=== PATIENT | female | born 1965 | race African-American/Black ===

== ENCOUNTER 2019-10-08 09:55 | Emergency (ER) | payer OTHER ==
[~2019-10-08] VITALS: Ht 170.2 cm; Wt 81.0 kg
[2019-10-08 10:50] VITALS: BP 112/58
[2019-10-08] MEDS ORDERED: SODIUM CHLORIDE 0.9% 1,000 ML IV ONE (10:57)
== END 2019-10-08 11:15 | disposition left against medical advice (07) ==
LOC: ER 09:55
DX: R42 Dizziness and giddiness (principal); R53.1 Weakness; I10 Essential (primary) hypertension; F41.9 Anxiety disorder, unspecified; Z88.5 Allergy status to narcotic agent
CPT/HCPCS: 99283; J7030